=== PATIENT | female | born 1955 | race Two or more races ===

== ENCOUNTER 2020-02-18 09:18 | Day surgery (SDC) | payer OTHER ==
[~2020-02-18 09:18] MED LIST: AMBIEN5 MG PO; GABAPENTIN800 M1 PO; PROAIR HFA8.5 GM IH; TENORMIN25 MG PO
== END 2020-02-18 21:00 | disposition home or self-care (01) ==
LOC: CIR.AMB 09:18
PROVIDERS: ATTEND Orthopaedic Surgery
DX: S46.221A Laceration of muscle, fascia and tendon of other parts of biceps, right arm, initial encounter (principal); M67.813 Other specified disorders of tendon, right shoulder; M71.311 Other bursal cyst, right shoulder; Z20.828 Contact with and (suspected) exposure to other viral communicable diseases